=== PATIENT | male | born 1985 | race Caucasian/White ===

== ENCOUNTER 2019-12-11 22:11 | Observation (INO) | payer MEDICAID ==
[2019-12-11] MEDS ORDERED: Zofran 4 MG/2 ML VIAL IV ONE (23:39)
[2019-12-11] MEDS ORDERED: BENADRYL 50 MG/ML IV ONE (23:39)
[2019-12-11] MEDS ORDERED: Sodium Chloride 0.9% 1000 ML 1,000 ML IV STA (23:39)
--- NOTE | 2019-12-11 23:39 | ERPHSYRPT ---
- History of Present Illness Time Seen by Provider: 12/11/19 23:35 Source: patient, family Exam Limitations: no limitations Patient Subjective Stated Complaint: pt here for a wound to back of left calf since thursday, he was admitted at [facility] and signed himself out ama. now states leg looks worse Triage Nursing Assessment: pt alert, walked in, resp easy, face mask in place, has swelling and reddness to calf, lower leg and foot swollen Physician History: pt has left leg infection being tx at and signed out AMA , did not get his outpt AB , was told to return if he got worse , and this is getting worse now . CT at was reported as just showing cellulitis , no abscess or osteomyelitis. neurovasc intact. no hx DVT. erythematous with cellulitis left lower leg. no fluctuance to drain Method of Injury: unknown Occurred: days ago Quality: constant, sharpness Severity of Pain-Max: moderate Severity of Pain-Current: moderate Lower Extremities Pain: leg: left Modifying Factors: Improves With: movement Associated Symptoms: none Allergies/Adverse Reactions: No Known Drug Allergies Allergy (Unverified 12/11/19 23:14) Home Medications: Clindamycin HCl 1 ea BID 12/11/19 [History] Doxycycline Hyclate 1 ea BID 12/11/19 [History] Hx Influenza Vaccination/Date Given: No Hx Pneumococcal Vaccination/Date Given: No Immunizations Up to Date: Yes Travel Risk - International Travel Have you traveled outside of the country in past 3 weeks: No - Coronavirus Screening Close contact with a COVID-19 positive Pt in past 14-21 Days: No - Review of Systems Constitutional: No Fever, No Chills Eyes: No Symptoms Ears, Nose, & Throat: No Symptoms Respiratory: No Cough, No Dyspnea Cardiac: No Chest Pain, No Edema, No Syncope Abdominal/Gastrointestinal: No Abdominal Pain, No Nausea, No Vomiting, No Diarrhea Genitourinary Symptoms: No Dysuria Musculoskeletal: No Back Pain, No Neck Pain Skin: Skin Lesions, No Rash Neurological: No Dizziness, No Focal Weakness, No Sensory Changes Psychological: No Symptoms Endocrine: No Symptoms All Other Systems: Reviewed and Negative - Past Medical History Pertinent Past Medical History: No - Past Surgical History Past Surgical History: Yes Gastrointestinal: Hernia Repair Musculoskeletal: Orthopedic Surgery Other Surgical History: right foot - Social History Smoking Status: Current every day smoker Exposure to second hand smoke: Yes Drug Use: none Patient Lives Alone: No - Nursing Vital Signs Nursing Vital Signs: Initial Vital Signs Temperature 97.8 F 12/11/19 23:09 Pulse Rate 80 12/11/19 23:09 Respiratory Rate 20 12/11/19 23:09 Blood Pressure 140/92 12/11/19 23:09 O2 Sat by Pulse Oximetry 98 12/11/19 23:09 Pain Scale Pain Intensity 9 - Physical Exam General Appearance: alert Eyes, Ears, Nose, Throat Exam: moist mucous membranes Neck Exam: non-tender, supple Cardiovascular/Respiratory Exam: chest non-tender, normal breath sounds, regular rate/rhythm, no respiratory distress Gastrointestinal/Abdominal Exam: non-tender, guarding Back Exam: normal inspection, No vertebral tenderness Hips Exam: bilateral: non-tender, normal inspection, normal range of motion, no evidence of injury Legs Exam: left leg: pain, soft tissue tenderness, swelling, other (cellulitis), bilateral leg: non-tender, normal inspection, normal range of motion, no evidence of injury Knees Exam: bilateral knee: non-tender, normal inspection, normal range of motion, no evidence of injury, bone tenderness Ankle Exam: bilateral ankle: non-tender, normal inspection, normal range of motion, no evidence of injury Foot Exam: bilateral foot: non-tender, normal inspection, normal range of motion, no evidence of injury Neuro/Tendon Exam: normal sensation, normal motor functions Mental Status Exam: alert, oriented x 3, cooperative Skin Exam: normal color, warm, dry SpO2: 98 - Course Nursing assessment & vital signs reviewed: Yes Ordered Tests: Active Orders 24 hr Category Date Time Status IV Insertion STAT Care 12/11/19 23:39 Active CBC W DIFF Stat Lab 12/11/19 23:50 Completed CMP Stat Lab 12/11/19 23:50 Completed CULTURE,WOUND Stat Lab 12/12/19 00:22 Ordered Medication Summary Generic Name Dose Route Start Last Admin Trade Name Freq PRN Reason Stop Dose Admin Vancomycin HCl 1 gm in 200 mls @ 125 mls/hr 12/11/19 23:40 12/11/19 23:52 Vancomycin 1 Gram/200 Ml Bag IV 12/12/19 01:15 125 ml/hr STAT ONE 125 mls/hr Administration Discontinued Medications Generic Name Dose Route Start Last Admin Trade Name Freq PRN Reason Stop Dose Admin Diphenhydramine HCl 25 mg 10/11/20 23:39 12/11/19 23:51 Benadryl 50 Mg/Ml IV 12/11/19 23:40 50 mg STAT ONE Administration Diphenhydramine HCl Confirm 12/11/19 23:47 Benadryl 50 Mg/Ml Administered 12/11/19 23:48 Dose 50 mg .ROUTE .STK-MED ONE Hydromorphone HCl 1 mg 12/11/19 23:41 12/11/19 23:52 Hydromorphone 1 Mg/Ml Injection IV 12/11/19 23:42 1 mg STAT ONE Administration Hydromorphone HCl Confirm 12/11/19 23:47 Hydromorphone 1 Mg/Ml Injection Administered 12/11/19 23:48 Dose 1 mg .ROUTE .STK-MED ONE Sodium Chloride 1,000 mls @ 999 mls/hr 12/11/19 23:39 12/11/19 23:51 Sodium Chloride 0.9% 1000 Ml IV 12/12/19 00:39 999 mls/hr .Q1H1M STA Administration Piperacillin Sod/Tazobactam 100 mls @ 200 mls/hr 12/11/19 23:40 Sod 4.5 gm/ Sodium Chloride IV 12/12/19 00:09 STAT ONE Sodium Chloride Confirm 12/11/19 23:48 Sodium Chloride 0.9% 1000 Ml Administered 12/11/19 23:49 Dose 1,000 mls @ ud .ROUTE .STK-MED ONE Vancomycin HCl Confirm 12/11/19 23:48 Vancomycin 1 Gram/200 Ml Bag Administered 12/11/19 23:49 Dose 1 gm in 200 mls @ ud IV .STK-MED ONE Sodium Chloride Confirm 12/12/19 00:06 Sodium Chloride 0.9% 100 Ml Ivpb Administered 12/12/19 00:07 Dose 100 mls @ ud IV .STK-MED ONE Ondansetron HCl 4 mg 12/11/19 23:39 12/11/19 23:51 Zofran 4 Mg/2 Ml Vial IV 12/11/19 23:40 4 mg STAT ONE Administration Ondansetron HCl Confirm 12/11/19 23:47 Zofran 4 Mg/2 Ml Vial Administered 12/11/19 23:48 Dose 4 mg .ROUTE .STK-MED ONE Piperacillin Sod/Tazobactam Sod Confirm 12/11/19 23:48 Zosyn Inj Administered 12/11/19 23:49 Dose 4.5 gm IV .STK-MED ONE Lab/Rad Data: Laboratory Result Diagrams 12/11/19 23:50 12/11/19 23:50 Laboratory Results 12/11/19 12/11/19 Range/Units 23:50 23:50 WBC 6.5 (4.0-10.5) K/mm3 RBC 4.21 (4.1-5.6) M/mm3 Hgb 14.2 (12.5-18.0) gm/dl Hct 42.6 (42-50) % MCV 101.2 H (78-100) fl MCH 33.7 H (26-32) pg MCHC 33.3 (32-36) g/dl RDW 13.5 (11.5-14.0) % Plt Count 118 L (150-450) K/mm3 MPV 11.7 H (7.5-11.0) fl Gran % 51.1 (36.0-66.0) % Eos # (Auto) 0.09 (0-0.5) Absolute Lymphs (auto) 2.23 (1.0-4.6) Absolute Monos (auto) 0.80 (0.0-1.3) Lymphocytes % 34.6 (24.0-44.0) % Monocytes % 12.4 H (0.0-12.0) % Eosinophils % 1.4 (0.00-5.0) % Basophils % 0.5 (0.0-0.4) % Absolute Granulocytes 3.30 (1.4-6.9) Basophils # 0.03 (0-0.4) Sodium 136 L (137-145) mmol/L Potassium 4.0 (3.5-5.1) mmol/L Chloride 107 (98-107) mmol/L Carbon Dioxide 25 (22-30) mmol/L Anion Gap 7.9 (5-15) MEQ/L BUN 9 (9-20) mg/dL Creatinine 0.74 (0.66-1.25) mg/dL Estimated GFR > 60.0 ML/MIN Glucose 96 (74-106) mg/dL Calcium 8.9 (8.4-10.2) mg/dL Total Bilirubin 0.30 (0.2-1.3) mg/dL AST 32 (17-59) U/L ALT 22 (0-50) U/L Alkaline Phosphatase 99 (38-126) U/L Serum Total Protein 7.0 (6.3-8.2) g/dL Albumin 3.4 L (3.5-5.0) g/dL - Progress Progress: improved, re-examined Progress Note: 12/12/19 01:02 discussed with pt and Dr. Rankin and all agree best to place him in on antibiotics Discussed with : Leni Will see patient in: hospital (observation) Counseled pt/family regarding: lab results, diagnosis, need for follow-up - Departure Departure Disposition: Observation Clinical Impression: cellulitis left calf Condition: Good Critical Care Time: No Referrals: DOCTOR,NO FAMILY [Primary Care Provider] -
[2019-12-11] MEDS ORDERED: VANCOMYCIN 1 GRAM/200 ML BAG 1 GM/200 ML PIGGYBACK IV ONE ×2 (23:40→23:48)
[2019-12-11] MEDS ORDERED: Zosyn INJ 4.5 GM in Sodium Chloride 100ML MINI-BAG PLUS 100 ML IV ONE (23:40)
[2019-12-11] MEDS ORDERED: Hydromorphone 1 mg/ml Injection IV ONE (23:41)
[2019-12-11] MEDS ORDERED: Zofran 4 MG/2 ML VIAL ONE (23:47)
[2019-12-11] MEDS ORDERED: BENADRYL 50 MG/ML ONE (23:47)
[2019-12-11] MEDS ORDERED: Hydromorphone 1 mg/ml Injection ONE (23:47)
[2019-12-11] MEDS ORDERED: Sodium Chloride 0.9% 1000 ML 1,000 ML ONE (23:48)
[2019-12-11] MEDS ORDERED: Zosyn INJ IV ONE (23:48)
[2019-12-12] LABS: BASOPHIL % 0.5 % (0.0-0.4); Basophil (Absolute #) 0.03 (0-0.4); Eosinophil % 1.4 % (0.00-5.0); Eosinophil (Absolute #) 0.09 (0-0.5); Hematocrit 42.6 % (42-50); Hemoglobin 14.2 gm/dl (12.5-18.0); Lymphocyte (Absolute #) 2.23 (1.0-4.6); Lymphocytes % 34.6 % (24.0-44.0); Mean Cell Volume 101.2 fl (78-100); Mean Corpuscular Hemoglobin 33.7 pg (26-32); Mean Corpuscular Hgb Concent. 33.3 g/dl (32-36); Mean Platelet Volume 11.7 fl (7.5-11.0); Monocytes % 12.4 % (0.0-12.0); Neutrophil % 51.1 % (36.0-66.0); Platelet Count 118 K/mm3 (150-450); Red Blood Count 4.21 M/mm3 (4.1-5.6); Red Cell Distribution Width 13.5 % (11.5-14.0); White Blood Count 6.5 K/mm3 (4.0-10.5)
[2019-12-12] MEDS ORDERED: Sodium Chloride 0.9% 100 ML IVPB 100 ML IV ONE (00:06)
[2019-12-12 00:14] LABS: ALBUMIN 3.4 g/dL (3.5-5.0); ALKALINE PHOSPHATASE 99 U/L (38-126); ANION GAP 7.9 MEQ/L (5-15); BLOOD UREA NITROGEN 9 mg/dL (9-20); CHLORIDE 107 mmol/L (98-107); Calcium 8.9 mg/dL (8.4-10.2); Carbon Dioxide 25 mmol/L (22-30); Creatinine 1 0.74 mg/dL (0.66-1.25); EST GLOMERULAR FILTRATION RATE > 60.0 ML/MIN; Glucose 96 mg/dL (74-106); SGOT/AST 32 U/L (17-59); SGPT/ALT 22 U/L (0-50); SODIUM 136 mmol/L (137-145)
[2019-12-12] MEDS ORDERED: TORAdol 30 mg Injection IV PRN (02:20)
[2019-12-12] MEDS ORDERED: VANCOCIN 1 GM VIAL*** 1 GM in Sodium Chloride 0.9% 250 ML 250 ML IV SCH (02:20)
[2019-12-12] MEDS ORDERED: HUMULIN R SQ PRN (02:20)
[2019-12-12] MEDS ORDERED: Zofran 4 MG/2 ML VIAL IV PRN (02:20)
[2019-12-12] MEDS: Hydromorphone 1 mg/ml Injection IV PRN ×5 (03:23→21:41)
[2019-12-12] MEDS: Nicoderm CQ 21 MG TOP SCH (04:17)
[2019-12-12] MEDS: Sodium Chloride 0.9% 1000 ML 1,000 ML IV SCH ×2 (05:32→20:02)
[2019-12-12 05:54] LABS: ALKALINE PHOSPHATASE 85 U/L (38-126); ANION GAP 5.4 MEQ/L (5-15); BLOOD UREA NITROGEN 9 mg/dL (9-20); CHLORIDE 107 mmol/L (98-107); Calcium 8.6 mg/dL (8.4-10.2); Carbon Dioxide 27 mmol/L (22-30); Creatinine 1 0.78 mg/dL (0.66-1.25); EST GLOMERULAR FILTRATION RATE > 60.0 ML/MIN; Glucose 95 mg/dL (74-106); Potassium 4.5 mmol/L (3.5-5.1); SGOT/AST 28 U/L (17-59); SGPT/ALT 21 U/L (0-50); SODIUM 135 mmol/L (137-145); Total Protein 6.4 g/dL (6.3-8.2)
[2019-12-12 06:01] LABS: Absolute Neutrophil Ct (ANC) 3.59 (1.4-6.9); BASOPHIL % 0.4 % (0.0-0.4); Basophil (Absolute #) 0.03 (0-0.4); Eosinophil % 1.7 % (0.00-5.0); Eosinophil (Absolute #) 0.12 (0-0.5); Hematocrit 42.8 % (42-50); Lymphocyte (Absolute #) 2.55 (1.0-4.6); Lymphocytes % 35.3 % (24.0-44.0); Mean Cell Volume 103.4 fl (78-100); Mean Corpuscular Hemoglobin 33.8 pg (26-32); Mean Corpuscular Hgb Concent. 32.7 g/dl (32-36); Mean Platelet Volume 12.3 fl (7.5-11.0); Monocyte (Absolute #) 0.93 (0.0-1.3); Monocytes % 12.9 % (0.0-12.0); Neutrophil % 49.7 % (36.0-66.0); Platelet Count 113 K/mm3 (150-450); Red Blood Count 4.14 M/mm3 (4.1-5.6); Red Cell Distribution Width 13.6 % (11.5-14.0); White Blood Count 7.2 K/mm3 (4.0-10.5)
[2019-12-12] MEDS ORDERED: Zosyn 3.375 GM Vial IV ONE (07:18)
[2019-12-12] MEDS: SODIUM CHLORIDE MINI IV SCH ×2 (07:52→13:34)
[2019-12-12] MEDS: ZOSYN IV SCH ×2 (07:52→13:34)
[2019-12-12] MEDS: Pepcid 20 MG VIAL IV SCH ×2 (11:10→20:03)
[2019-12-12] MEDS: VANCOMYCIN 2 GRAM/400 ML BAG 2 GM/400 ML PIGGYBACK IV SCH ×2 (11:14→21:41)
[2019-12-12] MEDS: ENOXAPARIN SODIUM SQ SCH (11:18)
[2019-12-12] MEDS ORDERED: Zosyn INJ 4.5 GM in Sodium Chloride 100ML MINI-BAG PLUS 100 ML IV SCH (12:00)
[2019-12-12] MEDS: Zosyn INJ 4.5 GM in Sodium Chloride 100ML MINI-BAG PLUS 100 ML IV SCH ×2 (13:29→18:53)
--- NOTE | 2019-12-12 17:06 | XRAY ---
Indication: Posterior left leg erythema, swelling, pain, and itching. Conventional contrast enhanced CTA performed of the entire left leg using 100 cc Isovue 370 contrast. Two-dimensional sagittal and coronal reformatted images obtained. Additional 3-dimensional reformatted images obtained using a separate workstation. Comparison: None Visualized left external iliac, common femoral, deep femoral, superficial femoral, popliteal, tibioperoneal trunk, and trifurcation vessels are normal in CTA appearance. Peroneal artery tapers off lower leg level with only the anterior and posterior tibial arteries crossing the ankle joint to supply the left foot. Lower leg/ankle demonstrates mild cutaneous/subcutaneous soft tissue swelling/edema. No walled off fluid collection or subcutaneous emphysema. Left groin demonstrates a few small lymph nodes, largest 9 x 18 mm. Remaining visualized soft tissues including pelvic contents are unremarkable. No acute fracture, suspicious bony lesions, or osseous destructive process. Left hip, knee, and ankle intact without effusion. Impression: 1. Negative CTA of the left leg. There is 2 vessel runoff into the left foot. 2. Mild lower leg/ankle soft tissue swelling/edema.
--- NOTE | 2019-12-12 17:15 | PCM.HP ---
History of Present Illness - Chief Complaint Chief Complaint: cellulitis Left calf History of Present Illness: is a 34 year old male seen and examined today following ER admission for cellulitis. Patient reports he was at [facility] from thu to thursday and was unhappy with the care he was receiving while there. He reports he left on Thursday and did not spanish [place] picker the medications that were prescribed to him as an outpatient due to cost. He reports that he came to ER yesterday due to worsening pain in left lower extremity. 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 He reports that he does pick and scratch at his skin. He will wake up in the night and find that he scratches his legs with his toe nails. Patient denies any other medical problems. He does not have a primary care provider. - Review of Systems Constitutional: No Symptoms Eyes: No Symptoms Ears, Nose, & Throat: No Symptoms Respiratory: No Cough, No Short Of Breath, No Wheezing Cardiac: Edema, No Chest Pain, No Palpitations Abdominal/Gastrointestinal: Nausea, No Abdominal Pain, No Vomiting, No Diarrhea, No Constipation, No Hematochezia Genitourinary Symptoms: No Symptoms Musculoskeletal: Other (left lower extremity pain) Skin: Cellulitis, Pruritis, Skin Lesions Neurological: No Headache Psychological: Drug Abuse (Former weed and meth user), Anxiety, No Alcohol Abuse, No Depression Medications & Allergies Home Medications: Home Medication List Clindamycin HCl 1 ea BID 12/11/19 [History Confirmed 12/11/19] Doxycycline Hyclate 1 ea BID 12/11/19 [History Confirmed 12/11/19] Allergies/Adverse Reactions: Allergies Allergy/AdvReac Type Severity Reaction Status Date / Time No Known Drug Allergies Allergy Unverified 12/11/19 23:14 - Past Medical History Past Medical History: No Pyscho-Social History: Anxiety - Past Surgical History Past Surgical History: Yes GI Surgical History: Hernia Repair Musculskeletal Surgical Hx: Orthopedic Surgery Other Surgical History: right foot - Social History Smoking Status: Current every day smoker Exposure to second hand smoke: No Alcohol: Occasionally Drug Use: none - Physical Exam Vital Signs: Vital Signs - 24 hr Temp Pulse Resp BP Pulse Ox 12/12/19 16:00 97.8 F 76 18 141/73 97 12/12/19 12:00 98.2 F 93 H 18 126/72 97 12/12/19 07:28 97.8 F 63 18 114/74 93 L 12/12/19 02:39 98.1 F 71 20 121/86 96 12/12/19 02:00 78 20 136/84 97 12/12/19 01:08 98 12/12/19 01:00 74 18 124/86 96 12/12/19 00:00 76 20 130/82 97 12/11/19 23:09 97.8 F 80 20 140/92 98 General Appearance: moderate distress Neurologic Exam: alert, oriented x 3, cooperative, depressed mood/affect Eye Exam: No scleral icterus Ears, Nose, Throat Exam: moist mucous membranes Neck Exam: normal inspection Respiratory Exam: normal breath sounds, lungs clear, No respiratory distress, No diminished breath sounds, No wheezing Cardiovascular Exam: regular rate/rhythm, normal heart sounds, edema, No normal peripheral pulses, No murmur, No friction rub, No gallop Gastrointestinal/Abdomen Exam: soft, normal bowel sounds, No tenderness, No distention, No mass, No guarding Rectal Exam: not done Extremity Exam: pedal edema (left lower extremity with erythema and pain with palpation. Most tender mid calf posterior/lateral. Patient), swelling, tenderness Skin Exam: warm, dry, other (significant lower extremity erythema left side from below knee. Extremely tender area posterior mid calf. Multiple skin lesions and scars from picking.) Wound Assessment: Skin/Wound Assessment Wound/Incision Assessment Start: 12/12/19 02:25 Text: Status: Active Freq: Q6H Protocol: Document 12/12/19 14:00 AR (Rec: 12/12/19 14:29 AR [id number]) Wound/Incision Assessment Left Calf Wound Assessment Shift Assessment Wound Type CELLULITIS Drainage Amount None General Appearance Open to air,Reddened Results - Labs Lab/Micro Results: Lab Results-Last 24 Hours 12/11/19 12/11/19 12/12/19 Range/Units 23:50 23:50 04:42 WBC 6.5 7.2 (4.0-10.5) K/mm3 RBC 4.21 4.14 (4.1-5.6) M/mm3 Hgb 14.2 14.0 (12.5-18.0) gm/dl Hct 42.6 42.8 (42-50) % MCV 101.2 H 103.4 H (78-100) fl MCH 33.7 H 33.8 H (26-32) pg MCHC 33.3 32.7 (32-36) g/dl RDW 13.5 13.6 (11.5-14.0) % Plt Count 118 L 113 L (150-450) K/mm3 MPV 11.7 H 12.3 H (7.5-11.0) fl Gran % 51.1 49.7 (36.0-66.0) % Eos # (Auto) 0.09 0.12 (0-0.5) Absolute Lymphs (auto) 2.23 2.55 (1.0-4.6) Absolute Monos (auto) 0.80 0.93 (0.0-1.3) Lymphocytes % 34.6 35.3 (24.0-44.0) % Monocytes % 12.4 H 12.9 H (0.0-12.0) % Eosinophils % 1.4 1.7 (0.00-5.0) % Basophils % 0.5 0.4 (0.0-0.4) % Absolute Granulocytes 3.30 3.59 (1.4-6.9) Basophils # 0.03 0.03 (0-0.4) Sodium 136 L (137-145) mmol/L Potassium 4.0 (3.5-5.1) mmol/L Chloride 107 (98-107) mmol/L Carbon Dioxide 25 (22-30) mmol/L Anion Gap 7.9 (5-15) MEQ/L BUN 9 (9-20) mg/dL Creatinine 0.74 (0.66-1.25) mg/dL Estimated GFR > 60.0 ML/MIN Glucose 96 (74-106) mg/dL Calcium 8.9 (8.4-10.2) mg/dL Total Bilirubin 0.30 (0.2-1.3) mg/dL AST 32 (17-59) U/L ALT 22 (0-50) U/L Alkaline Phosphatase 99 (38-126) U/L Serum Total Protein 7.0 (6.3-8.2) g/dL Albumin 3.4 L (3.5-5.0) g/dL 12/12/19 Range/Units 04:42 WBC (4.0-10.5) K/mm3 RBC (4.1-5.6) M/mm3 Hgb (12.5-18.0) gm/dl Hct (42-50) % MCV (78-100) fl MCH (26-32) pg MCHC (32-36) g/dl RDW (11.5-14.0) % Plt Count (150-450) K/mm3 MPV (7.5-11.0) fl Gran % (36.0-66.0) % Eos # (Auto) (0-0.5) Absolute Lymphs (auto) (1.0-4.6) Absolute Monos (auto) (0.0-1.3) Lymphocytes % (24.0-44.0) % Monocytes % (0.0-12.0) % Eosinophils % (0.00-5.0) % Basophils % (0.0-0.4) % Absolute Granulocytes (1.4-6.9) Basophils # (0-0.4) Sodium 135 L (137-145) mmol/L Potassium 4.5 (3.5-5.1) mmol/L Chloride 107 (98-107) mmol/L Carbon Dioxide 27 (22-30) mmol/L Anion Gap 5.4 (5-15) MEQ/L BUN 9 (9-20) mg/dL Creatinine 0.78 (0.66-1.25) mg/dL Estimated GFR > 60.0 ML/MIN Glucose 95 (74-106) mg/dL Calcium 8.6 (8.4-10.2) mg/dL Total Bilirubin 0.40 (0.2-1.3) mg/dL AST 28 (17-59) U/L ALT 21 (0-50) U/L Alkaline Phosphatase 85 (38-126) U/L Serum Total Protein 6.4 (6.3-8.2) g/dL Albumin 3.0 L (3.5-5.0) g/dL - Radiology Impressions Radiology Exams & Impressions: Radiology Procedures Category Date Time Status CTA LOWER EXTREMITY W CONTRAST [CT] Routine Exams 12/12/19 11:29 Completed Assessment/Plan (1) Cellulitis Current Visit: Yes Status: Acute Assessment & Plan: CT scan did not show a drainable abscess however will continue to monitor for coalescing on posterior calf. That is the most painful area for patient. Will continue on current IV antibiotics. Patient was not complaint with picking up his other prescriptions due to cost so there is concern he would fail outpatient therapy again. He is on diluadid for pain managment at this time. Code(s): L03.90 - CELLULITIS, UNSPECIFIED (2) Anxiety Current Visit: Yes Status: Acute Assessment & Plan: Patient reports hx of anxiety that goes untreated because he does follow with a physician. Recommend that patient start seeing a PCP to get treatment. Will continue to monitor this during his visit. Code(s): F41.9 - ANXIETY DISORDER, UNSPECIFIED (3) Skin picking habit Current Visit: Yes Status: Acute Assessment & Plan: Patient has multiple scabs over all four extremities. 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 Patient has multiple areas that are scared as well. Hx of meth use as well. Patient reports he does not like to use lotion for his skin. Unsure if this is more a anxiety provoked response or due to dry skin. Code(s): F42.4 - EXCORIATION (SKIN-PICKING) DISORDER (4) Elevated BP without diagnosis of hypertension Current Visit: Yes Status: Acute Assessment & Plan: Possibly due to pain. Will continue to monitor during hospital stay. Patient may be discharged on bp meds Code(s): R03.0 - ELEVATED BLOOD-PRESSURE READING, W/O DIAGNOSIS OF HTN
[2019-12-13] MEDS: Zosyn INJ 4.5 GM in Sodium Chloride 100ML MINI-BAG PLUS 100 ML IV SCH ×5 (00:50→23:40)
[2019-12-13] MEDS: Hydromorphone 1 mg/ml Injection IV PRN ×6 (02:14→23:29)
[2019-12-13] MEDS: Nicoderm CQ 21 MG TOP SCH (02:15)
[2019-12-13] MEDS: Sodium Chloride 0.9% 1000 ML 1,000 ML IV SCH (09:19)
[2019-12-13] MEDS: ENOXAPARIN SODIUM SQ SCH (09:20)
[2019-12-13] MEDS: Pepcid 20 MG VIAL IV SCH ×2 (09:24→21:20)
[2019-12-13] MEDS: VANCOMYCIN 2 GRAM/400 ML BAG 2 GM/400 ML PIGGYBACK IV SCH ×2 (09:24→21:21)
[2019-12-13 09:54] LABS: BASOPHIL % 0.3 % (0.0-0.4); Basophil (Absolute #) 0.02 (0-0.4); Eosinophil (Absolute #) 0.18 (0-0.5); Hematocrit 40.9 % (42-50); Hemoglobin 14.2 gm/dl (12.5-18.0); Lymphocyte (Absolute #) 1.99 (1.0-4.6); Lymphocytes % 33.2 % (24.0-44.0); Mean Corpuscular Hemoglobin 34.7 pg (26-32); Mean Corpuscular Hgb Concent. 34.7 g/dl (32-36); Mean Platelet Volume 11.7 fl (7.5-11.0); Monocyte (Absolute #) 0.81 (0.0-1.3); Monocytes % 13.5 % (0.0-12.0); Platelet Count 124 K/mm3 (150-450); Red Blood Count 4.09 M/mm3 (4.1-5.6); Red Cell Distribution Width 13.5 % (11.5-14.0)
[2019-12-13 11:01] LABS: ANION GAP 6.2 MEQ/L (5-15); BLOOD UREA NITROGEN 4 mg/dL (9-20); CHLORIDE 106 mmol/L (98-107); Calcium 8.8 mg/dL (8.4-10.2); Carbon Dioxide 27 mmol/L (22-30); Creatinine 1 0.73 mg/dL (0.66-1.25); EST GLOMERULAR FILTRATION RATE > 60.0 ML/MIN; Glucose 89 mg/dL (74-106); SODIUM 135 mmol/L (137-145)
--- NOTE | 2019-12-13 19:08 | PCM.NOTE ---
Date and Time: 12/13/191900 Subjective Assessment: 34 yr old male seen and examined this am. Patient reports the leg is still extremely painful. He reports that the posterior calf is still the most painful. Patient reports that he has noticed the swelling in his foot has gone down and that his foot is not as painful. He also reports the area just below his knee is not has painful. He denies any other symptoms this am. - Review of Systems Constitutional: No Fever Eyes: No Symptoms Ears, Nose, & Throat: No Symptoms Respiratory: No Symptoms Cardiac: No Symptoms Abdominal/Gastrointestinal: No Symptoms Musculoskeletal: Other (Left lower extremity pain and swelling. ) Skin: Cellulitis Neurological: No Symptoms Psychological: Anxiety (Stable right now) Objective Exam General Appearance: moderate distress (only when examing the posterior left lower extremity) Neurologic Exam: alert, oriented x 3, cooperative, depressed mood/affect Skin Exam: warm, dry, other (Left lower leg is erythematous edematous but improved from yesterday. The posterior calf has an open area that is draining serosanguinis drainage. The area posteriorly is demonstrating confluence of infection. No fluctuance present but tense and weeping.) Wound Assessment: Skin/Wound Assessment Wound/Incision Assessment Start: 12/12/19 02:25 Text: Status: Active Freq: Q6H Protocol: Document 12/13/19 14:00 GREGORIO (Rec: 12/13/19 14:34 [facility] [id number]) Wound/Incision Assessment Left Calf Wound Assessment Shift Assessment Wound Type CELLULITIS Drainage Amount Minimal General Appearance Open to air,Reddened Surrounding Tissue Barnhart,Edematous Wound Photo Photo Taken No Eye Exam: No scleral icterus Ears, Nose, Throat Exam: moist mucous membranes Neck Exam: normal inspection Respiratory Exam: normal breath sounds, lungs clear, No respiratory distress, No diminished breath sounds, No wheezing Cardiovascular Exam: regular rate/rhythm, No murmur, No friction rub, No gallop Gastrointestinal/Abdomen Exam: soft Extremity Exam: pedal edema, swelling, tenderness (left side lower extremity) OBJECTIVE DATA Vital Signs: Vital Signs - 24 hr Temp Pulse Resp BP BP Pulse Ox 12/13/19 16:00 72 20 120/75 98 12/13/19 12:00 98.1 F 70 20 120/73 99 12/13/19 07:30 98.1 F 68 20 113/75 98 12/13/19 04:00 97.8 F 61 18 115/73 93 L 12/13/19 00:00 98 F 65 18 126/60 94 L 12/12/19 19:59 97.8 F 63 16 137/80 98 Pain Assessment - Last Documented Pain Intensity 7 Pain Scale Used 0-10 Pain Scale Intake and Output: Intake & Output 12/11/19 12/12/19 12/13/19 12/14/19 11:59 11:59 11:59 11:59 Intake Total 200 3906 240 Output Total 450 2275 Balance -250 1631 240 Weight 143 kg 141.3 kg Lab Results: Lab Results-Last 24 Hours 12/13/19 12/13/19 Range/Units 09:45 09:45 WBC 6.0 (4.0-10.5) K/mm3 RBC 4.09 L (4.1-5.6) M/mm3 Hgb 14.2 (12.5-18.0) gm/dl Hct 40.9 L (42-50) % MCV 100.0 (78-100) fl MCH 34.7 H (26-32) pg MCHC 34.7 (32-36) g/dl RDW 13.5 (11.5-14.0) % Plt Count 124 L (150-450) K/mm3 MPV 11.7 H (7.5-11.0) fl Gran % 50.0 (36.0-66.0) % Eos # (Auto) 0.18 (0-0.5) Absolute Lymphs (auto) 1.99 (1.0-4.6) Absolute Monos (auto) 0.81 (0.0-1.3) Lymphocytes % 33.2 (24.0-44.0) % Monocytes % 13.5 H (0.0-12.0) % Eosinophils % 3.0 (0.00-5.0) % Basophils % 0.3 (0.0-0.4) % Absolute Granulocytes 3.00 (1.4-6.9) Basophils # 0.02 (0-0.4) Sodium 135 L (137-145) mmol/L Potassium 4.0 (3.5-5.1) mmol/L Chloride 106 (98-107) mmol/L Carbon Dioxide 27 (22-30) mmol/L Anion Gap 6.2 (5-15) MEQ/L BUN 4 L (9-20) mg/dL Creatinine 0.73 (0.66-1.25) mg/dL Estimated GFR > 60.0 ML/MIN Glucose 89 (74-106) mg/dL Calcium 8.8 (8.4-10.2) mg/dL Radiology Exams: Radiology Procedures Category Date Time Status CTA LOWER EXTREMITY W CONTRAST [CT] Routine Exams 12/12/19 11:29 Completed Multi-Disciplinary Progress Notes: Multi-Disciplinary Progress Notes 12/13/19 09:11 Case Management Note by Hali Parker SPOKE WITH PT, CONTINUES TO DENY ANY NEEDS AT D/C. WILL CONTINUE TO FOLLOW FOR ANY NEEDS. Initialized on 12/13/19 09:11 - END OF NOTE Assessment/Plan (1) Cellulitis Current Visit: Yes Status: Acute Assessment & Plan: Improving. Culture still pending. Still appears to be MRSA. Patient now has some weeping from the posterior calf. Will get wound care eval and plan to dress wound. The posterior calf might be forming an abscess. CT was neg for abscess but will continue to monitor. Patient will need to start on stool softener and probiotic due to antibiotics and narcotics being given Code(s): L03.90 - CELLULITIS, UNSPECIFIED (2) Anxiety Current Visit: Yes Status: Acute Assessment & Plan: Patient is doing well with his anxiety. He has not required any medication for this Code(s): F41.9 - ANXIETY DISORDER, UNSPECIFIED (3) Skin picking habit Current Visit: Yes Status: Acute Assessment & Plan: Likely related to anxiety. He does have multiple scabs and a few other open lesions on his extremities. High risk to develop cellulitis again. Code(s): F42.4 - EXCORIATION (SKIN-PICKING) DISORDER (4) Elevated BP without diagnosis of hypertension Current Visit: Yes Status: Acute Assessment & Plan: Possibly due to pain. Will continue to monitor. Code(s): R03.0 - ELEVATED BLOOD-PRESSURE READING, W/O DIAGNOSIS OF HTN
[2019-12-14] MEDS: Sodium Chloride 0.9% 1000 ML 1,000 ML IV SCH ×2 (01:31→09:49)
[2019-12-14] MEDS: Hydromorphone 1 mg/ml Injection IV PRN ×2 (03:30→08:30)
[2019-12-14] MEDS: Nicoderm CQ 21 MG TOP SCH (03:31)
[2019-12-14] MEDS: Zosyn INJ 4.5 GM in Sodium Chloride 100ML MINI-BAG PLUS 100 ML IV SCH ×2 (05:15→12:44)
[2019-12-14 07:11] VITALS: O2SAT 97
[2019-12-14] MEDS ORDERED: TROUGH DRUG LEVELS IJ ONE (09:30)
[2019-12-14] MEDS: VANCOMYCIN 2 GRAM/400 ML BAG 2 GM/400 ML PIGGYBACK IV SCH (09:50)
[2019-12-14] MEDS: Pepcid 20 MG VIAL IV SCH (09:53)
[2019-12-14] MEDS: ENOXAPARIN SODIUM SQ SCH (09:53)
[2019-12-14] MEDS: NORCO 7.5/325 MG TAB PO PRN ×2 (09:54→13:54)
[2019-12-14] MEDS ORDERED: Acidophilus TABLET PO SCH (10:00)
--- NOTE | 2019-12-14 10:25 | PCM.DS ---
Discharge Summary Date of Admission: 12/12/19 02:12 Date of Discharge: 12/14/19 Admitting Physician: VERO NUR MD Primary Care Provider: NO FAMILY DOCTOR Allergies Allergies No Known Drug Allergies Allergy (Unverified 12/11/19 23:14) Hospital Summary - Hospital Course Hospital Course: is a 34 year old male admitted from ER for cellulitis. Patient reports he was at [facility] from thu to thursday and was unhappy with the care he was rec eiving while there. He reports he left on Thursday and did not brick picker the medications that were prescribed to him as an outpatient due to cost. He reports that he came to ER yesterday due to worsening pain in left lower extremity. 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 He has a hx of skin picking. Previous hx of drug use. Patient was admitted to the medical floor. He was started on IV antibiotics and pain medication. CT scan was ordered and neg for clot or drainable abscess. Patient reports that the pain has slowly started to improve. His skin did break open on posterior calf area. He feels much better today but the area on posterior calf is still painful. Patient would like to go home if possible but wants to make sure its fully treated. Patient will go home on oral antibiotics and po pain medication. He will need to have follow up with wound care. Patient will need to follow up as outpatient. - Vitals & Intake/Output Vital Signs: Vital Signs Temperature 97.9 F 12/14/19 07:11 Pulse Rate 64 12/14/19 07:11 Respiratory Rate 20 12/14/19 07:11 Blood Pressure 164/80 12/14/19 07:11 O2 Sat by Pulse Oximetry 97 12/14/19 07:11 Intake & Output: Intake & Output 12/11/19 12/12/19 12/13/19 12/14/19 11:59 11:59 11:59 11:59 Intake Total 200 3906 5016 Output Total 450 2275 2250 Balance -250 1631 2766 Weight 143 kg 141.3 kg 139.7 kg - Lab Result Diagrams: 12/13/19 09:45 12/13/19 09:45 Lab Results-Last 24 Hrs: Lab Results-Last 24 Hours 12/13/19 12/13/19 12/14/19 Range/Units 09:45 09:45 09:10 WBC 6.0 (4.0-10.5) K/mm3 RBC 4.09 L (4.1-5.6) M/mm3 Hgb 14.2 (12.5-18.0) gm/dl Hct 40.9 L (42-50) % MCV 100.0 (78-100) fl MCH 34.7 H (26-32) pg MCHC 34.7 (32-36) g/dl RDW 13.5 (11.5-14.0) % Plt Count 124 L (150-450) K/mm3 MPV 11.7 H (7.5-11.0) fl Gran % 50.0 (36.0-66.0) % Eos # (Auto) 0.18 (0-0.5) Absolute Lymphs (auto) 1.99 (1.0-4.6) Absolute Monos (auto) 0.81 (0.0-1.3) Lymphocytes % 33.2 (24.0-44.0) % Monocytes % 13.5 H (0.0-12.0) % Eosinophils % 3.0 (0.00-5.0) % Basophils % 0.3 (0.0-0.4) % Absolute Granulocytes 3.00 (1.4-6.9) Basophils # 0.02 (0-0.4) Sodium 135 L (137-145) mmol/L Potassium 4.0 (3.5-5.1) mmol/L Chloride 106 (98-107) mmol/L Carbon Dioxide 27 (22-30) mmol/L Anion Gap 6.2 (5-15) MEQ/L BUN 4 L (9-20) mg/dL Creatinine 0.73 (0.66-1.25) mg/dL Estimated GFR > 60.0 ML/MIN Glucose 89 (74-106) mg/dL Calcium 8.8 (8.4-10.2) mg/dL Vancomycin Trough 12.97 (10-20) ug/mL Micro Results-Entire Visit: Microbiology 12/12/19 02:00 Wound Culture - Preliminary Leg - Left Lower NO GROWTH TO DATE - Radiology Exams Ordered Rad Exams-Entire Visit: Radiology Procedures Category Date Time Status CTA LOWER EXTREMITY W CONTRAST [CT] Routine Exams 12/12/19 11:29 Completed - Procedures and Test Procedures and Tests throughout Hospitalization: Therapy Orders & Screens 12/12/19 03:13 OT Screen per Nursing Assess ONCE Comment: Protocol Order Physician Instructions: Greater than 3 points order OT Admission Screening Reason For Exam: Triggered on Admission Diagnosis: cellulitis Left calf Open Wound/Cellutlitis/Pressure Ulcers: Yes Acute Fx/ORIF/Change in wt bearing status: No Severe MUSCULOSKELETAL pain: No ADL Dysfunction: No Acute CVA w/Hemiparesis/Hemiplegia: No Decreased Functional Mobility/Strength: Yes Sprain/Strain: No Acute Post-op Mobility Dysfunction: No Total Points: 6 PT Screen per Nursing Assess ONCE Comment: Protocol Order Physician Instructions: Greater than 3 points order PT Admission Screenin Reason For Exam: Triggered on Admission Diagnosis: cellulitis Left calf Open Wound/Cellutlitis/Pressure Ulcers: Yes Acute Fx/ORIF/Change in wt bearing status: No Severe MUSCULOSKELETAL pain: No ADL Dysfunction: No Acute CVA w/Hemiparesis/Hemiplegia: No Decreased Functional Mobility/Strength: Yes Sprain/Strain: No Acute Post-op Mobility Dysfunction: No Total Points: 6 12/13/19 11:20 PT Eval & Treat (MD Order) ONCE Reason for Eval:: wound care for left calf Diagnosis: cellulitis Left calf Discharge Exam General Appearance: mild distress Wound Assessment: Skin/Wound Assessment Wound/Incision Assessment Start: 12/12/19 02:25 Text: Status: Active Freq: Q6H Protocol: Document 12/14/19 08:00 BSANTUS (Rec: 12/14/19 08:44 BSANTUS [id number]) Wound/Incision Assessment Left Calf Wound Assessment Shift Assessment Wound Type CELLULITIS Drainage Amount Minimal General Appearance Reddened Surrounding Tissue [place],Edematous Comment dressing applied per PT. dressing CDI. Wound Photo Photo Taken No Final Diagnosis/Problem List - Final Discharge Diagnosis/Problem (1) Cellulitis Current Visit: Yes Status: Acute Code(s): L03.90 - CELLULITIS, UNSPECIFIED (2) Anxiety Current Visit: Yes Status: Acute Code(s): F41.9 - ANXIETY DISORDER, UNSPECIFIED (3) Skin picking habit Current Visit: Yes Status: Acute Code(s): F42.4 - EXCORIATION (SKIN-PICKING) DISORDER (4) Elevated BP without diagnosis of hypertension Current Visit: Yes Status: Acute Code(s): R03.0 - ELEVATED BLOOD-PRESSURE READING, W/O DIAGNOSIS OF HTN - Discharge Disposition: Home, Self-Care Condition: Good Prescriptions: New Hydrocodone/Acetaminophen [[place] 7.5-325 Tablet] 1 each PO Q6H PRN 3 Days #12 tablet MDD 4 PRN Reason: Pain Lactobacillus Casei/Folic Acid [[facility] Rx Capsule] 1 each PO DAILY #7 capsu le Continue Clindamycin HCl 1 ea BID Doxycycline Hyclate 1 ea BID Additional Instructions: FILL AND TAKE ORAL PRESCRIPTIONS FOR ANTIBIOTICS THAT WERE PREVIOUSLY GIVEN TO YOU FOR CLINDAMYCIN AND DOXYCYCLINE. YOU WILL HAVE ORAL PAIN MEDICATIONS THERE READY FOR YOU WELL. Follow up with: DOCTOR,NO FAMILY [Primary Care Provider] - 1 Week Forms: Work/School Release Form
[2019-12-14 16:43] VITALS: BP 157/86; PULSE 66
== END 2019-12-14 16:42 | disposition home or self-care (01) ==
LOC: ED 22:11 → MED SURG 12-12 02:12
PROVIDERS: ADMIT Family Medicine; ATTEND Family Medicine
DX: L03.116 Cellulitis of left lower limb (principal); F41.9 Anxiety disorder, unspecified; F42.4 Excoriation (skin-picking) disorder; R03.0 Elevated blood-pressure reading, without diagnosis of hypertension; Z79.899 Other long term (current) drug therapy
CPT/HCPCS: 36000; 36415; 73706; 80048; 80053; 80202; 85025; 87070; 96365; 96367; 96374; 96375; 97161; 99284; G0378; A6457; J1170; J1200; J1650; J2405; J2543; A9270-GY; J3370